=== PATIENT | male | born 1940 | race Caucasian/White ===

== ENCOUNTER → 2017-03-11 | Outpatient (CLI) | payer OTHER ==
--- NOTE | ~2017-03-11 | EE ---
Unit #: [id number] #: [id number] Patient: QUINCY DRISCOLL [id number] [address] [address] [id number] O MR#: [id number] NAME: QUINCY DRISCOLL : 1940 SEX: M STUDY DATE/TIME: 03/11/2017 UNIT: CEEG ROOM: STUDY DESCRIPTION: Attending Physician: Ruiz Aguirre II., M.D. Referring Physician: Ruiz Aguirre II., M.D. Primary Care Physician: Ubaldo Damon M.D. NEURODIAGNOSTICS REPORT EXAM EEG. REASON FOR STUDY Seizures. TECHNICAL INFORMATION This is a routine EEG performed using the [employer] 10/20 System with electrode placement. Photic stimulation was performed. Hyperventilation was also performed. REPORT Throughout the entire study, the best background rhythm seen is approximately 9 Hz. This rhythm is seen in both posterior head regions symmetrically and does attenuate to eye opening and closure. Photic stimulation was performed which did not elicit any epileptiform abnormalities. Hyperventilation was also performed which did not elicit any abnormal buildup. Throughout the entire study, there were no electrographic seizures recorded nor were there any epileptiform abnormalities seen. There was no sleep recorded during the EEG. INTERPRETATION This is a normal awake EEG. A normal EEG does not rule out the possibility of seizure disorder. Clinical correlation is advised. Dictated by... Ruiz Aguirre II., M.D. GWS/yvette TD: 03/12/2017 09:35 JOB #: [id number] Unit #: [id number] #: [id number] Patient: QUINCY DRISCOLL NEURODIAGNOSTICS REPORT Page 1 of 1 X NEURODIAGNOSTICS REPORT
--- NOTE | ~2017-03-11 | MR17 ---
[facility] A Service of [facility] & [facility] RADIOLOGY TEXT RESULTS PATIENT: QUINCY DRISCOLL LOCATION: CEEG : 42 UNIT #: [id number] AGE: [address]: Ruiz Aguirre II, MD SEX: M ORDER DR: [id number] [facility] [address] [place], [place] [address] [id number] O MR#: [id number] Acc #: [id number] NAME: QUINCY DRISCOLL : 1940 SEX: M STUDY DATE/TIME: 03/11/2017 11:12 UNIT: CEEG ROOM: STUDY DESCRIPTION: MR Brain WWo Contrast Attending Physician: Ruiz Aguirre II., M.D. Referring Physician: Ruiz Aguirre II., M.D. Ordering Physician: Ruiz Aguirre II., M.D. Primary Care Physician: Ubaldo Damon M.D. MRI CENTER REPORT This report is preliminary unless electronic signature is present. EXAM MRI of the brain with and without contrast dated 03/11/2017. COMPARISON None. HISTORY Seizures since :. 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 History of short-term memory loss. TECHNIQUE Multisequence multiplanar imaging of the brain was obtained with and without contrast. eGFR measured greater than 60. 16 mL of MultiHance was administered intravenously. FINDINGS Diffuse parenchymal volume loss is seen which is age appropriate to slightly worse. There are a few tiny hyperintense T2 signal lesions noted in the left cerebellar hemisphere and to a lesser degree in the right cerebellar hemisphere and supratentorial white matter. Coronal T2 thin sequence through the hippocampal formations do not demonstrate any significant abnormality. Sella with the pituitary gland is unremarkable. Pineal region is within normal limits. Degenerative changes are noted in the cervical spine. IMPRESSION 1. No demonstrable acute intracranial abnormality or enhancing mass. 2. Punctate tiny few hyperintense T2-signal lesions are noted in the white matter, likely related to minimal chronic microvascular ischemic change or migraine based on age and statistics. They are also noted in the cerebellar hemispheres, particularly in the left, suspicious for tiny lacunar infarcts. [facility] A Service of [facility] & [facility] RADIOLOGY TEXT RESULTS PATIENT: QUINCY DRISCOLL LOCATION: CE : 42 UNIT #: [id number] AGE: [address]: Ruiz Aguirre II, MD SEX: M ORDER DR: Dictated by... Lorenzo Machado M.D. THIS IS AN ELECTRONICALLY VERIFIED REPORT Lorenzo Machado M.D. at 03/12/2017 3:10 PM CPR/pcl TD: 03/11/2017 18:37 JOB #: [id number] MRI CENTER REPORT Page 1 of 1 COPY
[2017-03-11 11:11] LABS: POC - GFR >60.0 mL/min (>60)
== END | disposition home or self-care (01) ==
LOC: CEEG 08:20
PROVIDERS: Psychiatry & Neurology Neurology
DX: G40.209 Localization-related (focal) (partial) symptomatic epilepsy and epileptic syndromes with complex partial seizures, not intractable, without status epilepticus (principal); R93.0 Abnormal findings on diagnostic imaging of skull and head, not elsewhere classified
CPT/HCPCS: 70553; 82565; 95816; A9577